=== PATIENT | male | born 1985 | race Caucasian/White ===

== ENCOUNTER 2021-08-28 08:41 | Emergency (ER) | payer OTHER ==
[~2021-08-28] VITALS: Ht 180.3 cm; Wt 72.6 kg
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
--- NOTE | 2021-08-28 08:50 | NUR ---
AT BED SIDE
[2021-08-28] MEDS ORDERED: CYCLOBENZAPRINE 10 MG TABLET PO ONE (09:00)
[2021-08-28] MEDS ORDERED: KETOROLAC TROMETHAMINE INJ 30 MG/ML VIAL IM ONE (09:00)
[2021-08-28] MEDS ORDERED: CYCLOBENZAPRINE 10 MG TABLET ONE (09:17)
[2021-08-28] MEDS ORDERED: KETOROLAC TROMETHAMINE INJ 30 MG/ML VIAL ONE (09:17)
--- NOTE | 2021-08-28 09:31 | NUR ---
X-RAY TECH. AT BED SIDE
--- NOTE | 2021-08-28 10:06 | NUR ---
[employer] officer Valent[place] [id number] at bedside talking to patient.
[2021-08-28] MEDS ORDERED: IBUP-1957 PO (11:10)
[2021-08-28] MEDS ORDERED: CYCL5TAB PO (11:10)
--- NOTE | 2021-08-28 11:15 | NUR ---
Patient discharged to home in stable condition. Written and verbal after care instructions given. Patient verbalizes understanding of instruction. Shoulder sling at affected side applied.
[2021-08-28 11:28] VITALS: BP 115/15
== END 2021-08-28 11:15 | disposition home or self-care (01) ==
LOC: ER 08:45
DX: S52.125A Nondisplaced fracture of head of left radius, initial encounter for closed fracture (principal); Z79.1 Long term (current) use of non-steroidal anti-inflammatories (NSAID); Z79.899 Other long term (current) drug therapy; V89.2XXA Person injured in unspecified motor-vehicle accident, traffic, initial encounter; Y93.89 Activity, other specified; Y92.89 Other specified places as the place of occurrence of the external cause; Y99.8 Other external cause status
CPT/HCPCS: 71045; 73080; 73090; 73110; 96372; 99284; J1885